=== PATIENT | male | born 1965 | race Two or more races ===

== ENCOUNTER 2022-03-13 11:54 | Emergency (ER) | payer MEDICAID ==
[~2022-03-13] VITALS: Ht 162.6 cm; Wt 77.3 kg
[2022-03-13 12:18] VITALS: BP 136/78
[2022-03-13] MEDS ORDERED: POLY238P PO (13:40)
[2022-03-13] MEDS ORDERED: VALA500T42 PO (13:40)
[2022-03-13] MEDS ORDERED: PRED-554 PO (13:40)
[2022-03-13] MEDS ORDERED: HYDR-4723 PO (13:40)
== END 2022-03-13 14:01 | disposition home or self-care (01) ==
LOC: EMS 12:01
DX: B02.9 Zoster without complications (principal)
CPT/HCPCS: 99283; Z7502

== ENCOUNTER 2023-02-01 08:41 | Emergency (ER) | payer MEDICAID, OTHER ==
[~2023-02-01] VITALS: Ht 162.6 cm; Wt 82.5 kg
[~2023-02-01 08:41] MED LIST: HYDR-4723 PO; POLY238P PO; PRED-554 PO; VALA500T42 PO
[2023-02-01 08:47] VITALS: TEMP 99.1
[2023-02-01 09:27] LABS: COVID AG,FIA SOURCE NASAL SWAB
[2023-02-01 09:59] LABS: INFLUENZA TYPE A NEGATIVE FOR TYPE A (NEGATIVE); INFLUENZA TYPE B NEGATIVE FOR TYPE B (NEGATIVE)
[2023-02-01 10:00] LABS: SARS-COV2 (COVID) ANTIGEN,FIA Negative (Negative)
[2023-02-01] MEDS ORDERED: GuaiFENesin/D-METHORPHAN [SUGAR-FREE] 200-20MG/10 ML SYRUP UDCUP PO ONE (10:15)
[2023-02-01] MEDS ORDERED: ALBUTEROL SULFATE 2.5 MG/0.5 ML NEB SOLUTION NEB ONE (10:15)
[2023-02-01] MEDS ORDERED: MethylPREDNISolone SOD SUCC 125 MG/2 ML VIAL IM ONE (10:15)
[2023-02-01] MEDS ORDERED: IPRATROPIUM BROMIDE 0.5 MG/2.5 ML NEB SOLUTION NEB ONE (10:15)
[2023-02-01] MEDS ORDERED: ACETAMINOPHEN 500 MG TABLET PO ONE (10:15)
[2023-02-01 10:47] LABS: EOSINOPHILS % (AUTO) 5.7 % (1.0-6.0); HEMATOCRIT 40.5 % (41-53); HEMOGLOBIN 14.2 g/dL (13.5-17.5); LYMPHOCYTES # (AUTO) 1.7 K/uL (1.0-4.8); LYMPHOCYTES % (AUTO) 17.3 % (22.0-44.0); MEAN CORPUSCULAR HEMOGLOBIN 32.3 pg (26.0-34.0); MEAN CORPUSCULAR HGB CONC 35.1 G/dL (31.0-37.0); MEAN CORPUSCULAR VOLUME 92 fL (80-100); MONOCYTES # (AUTO) 1.3 K/uL (0.1-1.0); MONOCYTES % (AUTO) 12.9 % (2.0-9.0); NEUTROPHILS # (AUTO) 6.2 K/uL (1.8-7.7); NEUTROPHILS % (AUTO) 63.1 % (40.0-70.0); PLATELET COUNT (AUTO) 107 K/uL (150-450); RED CELL DISTRIBUTION WIDTH 14.8 % (11.5-14.5); WHITE BLOOD COUNT (AUTO) 9.9 K/uL (4.5-11.0)
[2023-02-01 10:54] LABS: ANION GAP 5 mmol/L (8-16); CALCIUM, TOTAL 8.2 mg/dL (8.8-10.5); CARBON DIOXIDE 23 mmol/L (22-29); CHLORIDE 108 mmol/L (98-107); GLOMERULAR FILTR. RATE CALC > 60 mL/min (>60); GLUCOSE,RANDOM 114 mg/dL (70-110); SODIUM SERUM 136 mmol/L (136-145); UREA NITROGEN, BLOOD 7 mg/dL (7-18)
[2023-02-01 11:00] LABS: ALANINE AMINOTRANSFERASE 79 U/L (12-78); ALKALINE PHOSPHATASE 95 U/L (46-116); ASPARTATE AMINOTRANSFERASE 92 U/L (15-37); TOTAL PROTEIN, SERUM 6.7 g/dL (6.4-8.2)
[2023-02-01 11:02] LABS: TROPONIN I-HIGH SENSITIVITY 15 ng/L (<76)
[2023-02-01 11:25] VITALS: PULSE 72; RESP 26; O2SAT 99
[2023-02-01 11:26] LABS: B-TYPE NATRIURETIC PEPTIDE 34 pg/mL (0-100)
[2023-02-01 11:40] VITALS: PULSE 78; RESP 21; O2SAT 98
[2023-02-01] MEDS ORDERED: ACET-66 PO (11:51)
[2023-02-01] MEDS ORDERED: GUAIFDM PO (11:51)
[2023-02-01] MEDS ORDERED: BENZ-227 PO (11:51)
[2023-02-01] MEDS ORDERED: ALBU18HF12 IH (11:51)
[2023-02-01 12:04] VITALS: BP 166/91; PULSE 71; RESP 24
== END 2023-02-01 12:06 | disposition home or self-care (01) ==
LOC: EMS 08:46
DX: J06.9 Acute upper respiratory infection, unspecified (principal); J20.9 Acute bronchitis, unspecified; R07.89 Other chest pain; Z20.822 Contact with and (suspected) exposure to COVID-19
CPT/HCPCS: 99285; 71045; 87426; 80053; 83880; 84484; 85025; 87804; 36415; 94640; 93005; 96372; J2930; J7613